=== PATIENT | female | born 1985 | race Hispanic/Latino ===

== ENCOUNTER → 2023-09-13 08:17 | Outpatient (CLI) | payer OTHER, SELFPAY ==
--- NOTE | 2023-09-13 08:20 | DI.MRI.S_ITS ---
PROCEDURE: MR LUMBAR SPINE WO CON INDICATIONS: Pain in left hip TECHNIQUE: Noncontrast sagittal T1 spin echo and T2 fast echo, sagittal STIR, and T2 fast spin echo through the lumbar spine. In cases with scoliosis, additional coronal T2 fast spin echo may be performed. COMPARISON: None. FINDINGS: Image quality: Diagnostic Alignment and Curvature: There is normal bony alignment. Bone Marrow: Marrow is of normal overall signal. No acute vertebral body compression fractures. Spinal Cord: Conus medullaris terminates at the T12-L1 level. Visualized cord demonstrates normal signal and size. Paraspinous Soft Tissues: No paravertebral masses. T12-L1: No significant neuroforaminal or spinal canal stenosis. L1-L2: No significant neuroforaminal or spinal canal stenosis. L2-L3: Mild bilateral facet arthropathy. No significant neuroforaminal or spinal canal stenosis. L3-L4: No significant neuroforaminal or spinal canal stenosis. L4-L5: Mild bilateral facet arthropathy. Slightly eccentric to the left disc bulge of the L4-5 disc. No significant neuroforaminal or spinal canal stenosis. L5-S1: Minimal bilateral facet arthropathy. Minimal symmetric disc bulge. No significant neuroforaminal or spinal canal stenosis. IMPRESSION: Minimal-mild lumbar spondylosis most pronounced in the lower lumbar spine. No significant neuroforaminal or spinal canal stenosis identified. Dictated by: Dereck Agrawal M.D. on 09/13/2023 at 9:53 Approved by: Dereck Agrawal M.D. on 09/13/2023 at 9:59
== END ==
LOC: MRI 08:19
PROVIDERS: Referring Provider Student in an Organized Health Care Education/Training Program; Visit Provider Student in an Organized Health Care Education/Training Program
DX: M25.552 Pain in left hip (principal); M47.816 Spondylosis without myelopathy or radiculopathy, lumbar region
CPT/HCPCS: 72148